=== PATIENT | female | born 1965 ===

== ENCOUNTER 2016-11-03 14:00 | Day surgery (SDC) | payer BC ==
[~2016-11-03] VITALS: Ht 167.6 cm; Wt 71.8 kg
[2016-11-03] MEDS ORDERED: FERROUS SU325 MG/TAB PO (14:34)
[2016-11-03] MEDS ORDERED: PRILOSEC 20MG20 MG PO (14:34)
[2016-11-03 15:04] VITALS: BP 114/78; PULSE 78; TEMP 98
[2016-11-03 16:10] VITALS: BP 118/74; PULSE 68; TEMP 97.7
[2016-11-03 16:25] VITALS: BP 125/65; PULSE 78
[2016-11-03 16:40] VITALS: BP 120/66; PULSE 63
== END 2016-11-03 16:51 | disposition home or self-care (01) ==
LOC: SDCO 14:00
DX: Z12.11 Encounter for screening for malignant neoplasm of colon (principal)
CPT/HCPCS: OP; J2250; J2405; J3010; J7030